=== PATIENT | male | born 1965 | race Caucasian/White ===

== ENCOUNTER 2023-01-25 22:38 | Emergency (ER) | payer OTHER, SELFPAY ==
[2023-01-25 22:46] VITALS: BP 209/109; PULSE 118; RESP 18; TEMP 36.6; O2SAT 94; BMI 30.8
[2023-01-25 22:59] VITALS: BP 192/97; PULSE 116; RESP 22; O2SAT 92
[2023-01-25] MEDS: ACETAMINOPHEN 500 MG TABLET 1000 MG PO (23:04)
--- NOTE | 2023-01-25 23:34 | ED.NURSE ---
tetanus 06/16/2018
[2023-01-26 00:55] VITALS: BP 193/95; PULSE 112; RESP 16; O2SAT 94
[2023-01-26 01:01] VITALS: BP 161/96; PULSE 86; RESP 18
--- NOTE | 2023-01-26 01:16 | ED.FALL ---
HPI - Fall General Date Seen: 01/26/23 Chief Complaint: Fall/Minor Trauma Stated Complaint: fall, head lac Time Seen by Provider: 01/25/23 22:52 Source: patient Mode of arrival: ambulatory Limitations: no limitations History of Present Illness HPI Narrative: Patient is a 49-year-old gentleman who presents here with a head injury, he fell approximately 30 minutes ago, missing 3 stairs falling hitting his of his head, denies any headache, neck pain or stiffness, no loss of consciousness associated with this, but there was bleeding which brought him to the emergency room. His last tetanus was updated 2018, no previous history of significant head injuries, is on no anticoagulants, did admit to having 1 gin and tonic approximately 4 hours ago. MD complaint: fall Fall from: down stairs (#) (3) Fall witnessed: no Place fall occurred: home Loss of consciousness: No Prolonged down time: no Symptoms prior to fall: none Context: tripped/slipped Location of injury: head Severity: mild Associated symptoms (after fall): denies Related Data Home Medications Medication Instructions Recorded Confirmed No Known Home Medications 01/25/23 01/25/23 Allergies Allergy/AdvReac Type Severity Reaction Status Date / Time No Known Drug Allergies Allergy Verified 01/25/23 22:48 Review of Systems Status of ROS: Reports: 10 or more systems reviewed and unremarkable except as noted in History and below [facility] Social History Smoking Status: Never smoker Do you use any of these nicotine containing products: None Second hand tobacco smoke exposure: No How often do you have a drink containing alcohol: 2-4 times a month How many standard drinks containing alcohol do you have on a typical day: 1 or 2 How often do you have six or more drinks on one occasion: Less than monthly AUDIT-C Alcohol total score: 3 Non-prescribed substance use: denies use service: No Exam Narrative: Exam Narrative: On examination he is in no apparent distress he is nontoxic, does not smell of alcohol and is speaking entirely normally. Pupils are equal round reactive to light there is no scleral icterus redness he tracks normally with absence of nystagmus TMs bilaterally are normal his neck is shows excellent range of motion of flexion extension lateral flexion and cervical rotation no tenderness along the C-spine, but there is a laceration that is approximately 3 in long, overlying his occiput. [employer] strengths are equal bilaterally, fingers nose testing are normal, he has tandem walking is normal he walks normally to the bathroom. I did originally order a head CT along with a neck CT, but unfortunately CT scanner is unavailable, which would necessitate is transferring him to a [place], which I range with the ambulance. He declined this intervention, which I think is reasonable given his normal neurologic examination. 1% lidocaine with epinephrine was used, infiltrated 4 mL, wound was cleaned out with normal saline, sterile prep and drape was done, I was able to use 5 simple sutures, 3-0 Prolene to approximate the wound. This resulted in good hemostasis estimated blood loss less than 3 mL. Pressure dressing applied Const: Vital Signs, click to edit/add: Vital Signs - 24 hr 01/25/23 22:46 01/25/23 22:59 01/26/23 00:55 Temperature 97.8 F Pulse Rate [Left P ulse Oximeter] 118 H 116 H 112 H Respiratory Rate 18 22 16 Blood Pressure [Le ft Upper Arm] 192/97 H 193/95 H Blood Pressure [Ri ght Upper Arm] 209/109 H Pulse Oximetry 94 92 94 Oxygen Delivery Me thod Room Air Room Air Room Air 01/26/23 01:01 Temperature Pulse Rate [Left P ulse Oximeter] 86 Respiratory Rate 18 Blood Pressure [Le ft Upper Arm] 161/96 H Blood Pressure [Ri ght Upper Arm] Pulse Oximetry Oxygen Delivery Me thod Course Course Hospital Course: I did discuss with him that his blood pressure is elevated, he came down some while he was here, but should be checked on his recheck. He did agree to me to come back if further worsening we went over signs and symptoms of a head injury significant. We also discussed the infection, further bleeding. Vital Signs Vital signs: Initial Vital Signs Temperature 97.8 F 01/25/23 22:46 Temperature Source Temporal Artery Scan 01/25/23 22:46 Pulse Rate 118 H 01/25/23 22:46 Respiratory Rate 18 01/25/23 22:46 Blood Pressure 209/109 H 01/25/23 22:46 Blood Pressure Mean 142 H 01/25/23 22:46 Blood Pressure Position Sitting 01/25/23 22:46 Pulse Oximetry 94 01/25/23 22:46 Oxygen Delivery Method Room Air 01/25/23 22:46 Vital Signs Temperature 97.8 F 01/25/23 22:46 Pulse Rate 118 H 01/25/23 22:46 Respiratory Rate 18 01/25/23 22:46 Blood Pressure 209/109 H 01/25/23 22:46 Pulse Oximetry 94 01/25/23 22:46 Oxygen Delivery Method Room Air 01/25/23 22:46 Temperature 97.8 F 01/25/23 22:46 Pulse Rate 86 01/26/23 01:01 Respiratory Rate 18 01/26/23 01:01 Blood Pressure 161/96 H 01/26/23 01:01 Pulse Oximetry 94 01/26/23 00:55 Oxygen Delivery Method Room Air 01/26/23 00:55 MDM - Fall MDM Narrative Medical decision making narrative: Life-threatening differential diagnosis is considered include: Subarachnoid hemorrhage, subdural hemorrhage, epidural hemorrhage. Other differential diagnosis considered include concussion, closed head injury, or neck fracture. Medical Records Attestation: I reviewed the patient's medical records. Discharge Plan Discharge Clinical Impression: Laceration, Head injury, Elevated blood pressure reading Patient Disposition: Home, Self-Care Condition: Improved Instructions: Laceration (ED), Head Injury (ED) Additional Instructions: Sutures should come out in 10 days, please leave the pressure dressing on till tomorrow, bacitracin on the wound showering is okay but swimming should be avoided. Infection is been increasing pain, redness, heat, or other signs he should come back and be seen, otherwise make an appointment at [facility], in 10 days to get them out. Your blood pressure was elevated here, would suggest rechecking in 19 days at the [facility]. If still elevated than a formal visit she would be needed. Prescriptions: No Action No Known Home Medications Follow Up/Referrals: Provider,Not a Local [Primary Care Provider] - Stand Alone Forms: [employer] Info Instructions
== END 2023-01-26 01:01 | disposition home or self-care (01) ==
PROVIDERS: Emergency Provider Family Medicine
DX: S01.01XA Laceration without foreign body of scalp, initial encounter (principal); W10.9XXA Fall (on) (from) unspecified stairs and steps, initial encounter
CPT/HCPCS: 12001; 12002; 99283; 99284; A9270